=== PATIENT | female | born 2000 | race Caucasian/White ===

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

== ENCOUNTER 2022-09-12 19:44 | Emergency (ER) | payer OTHER ==
[2022-09-12] MEDS ORDERED: Proparacaine 0.5% Opth 15 ML BOT ONE (20:14)
== END 2022-09-12 21:32 | disposition home or self-care (01) ==
LOC: ERS 19:44
DX: S05.02XA Injury of conjunctiva and corneal abrasion without foreign body, left eye, initial encounter (principal)
CPT/HCPCS: 99282

== ENCOUNTER 2022-10-04 11:48 | Emergency (ER) | payer OTHER | END 2022-10-04 13:22 | disposition home or self-care (01) | LOC: ERS 11:48 | DX: S52.611A Displaced fracture of right ulna styloid process, initial encounter for closed fracture (principal); F17.290 Nicotine dependence, other tobacco product, uncomplicated; W55.12XA Struck by horse, initial encounter ==

== ENCOUNTER 2024-02-04 19:06 | Emergency (ER) | payer BC, OTHER ==
[2024-02-04] MEDS ORDERED: HYDROcodone/Acetaminophen 10/325 mg Tablet ONE (19:21)
[2024-02-04] MEDS ORDERED: Boostrix 0.5 ML (Tdap) VIAL (>/=7 yrs of age) ONE (20:09)
[2024-02-04] MEDS ORDERED: AFRIN NASAL MIST 15 ML BOT NS SCH (20:15)
== END 2024-02-04 21:45 | disposition home or self-care (01) ==
LOC: ERS 19:06
DX: S02.2XXA Fracture of nasal bones, initial encounter for closed fracture (principal); S02.119A Unspecified fracture of occiput, initial encounter for closed fracture; F17.290 Nicotine dependence, other tobacco product, uncomplicated; Z23 Encounter for immunization; V89.2XXA Person injured in unspecified motor-vehicle accident, traffic, initial encounter
CPT/HCPCS: 70450; 70486; 90471; 90715